=== PATIENT | female | born 1985 | race Caucasian/White ===

== ENCOUNTER 2022-12-22 11:28 | Emergency (ER) | payer SELFPAY ==
[~2022-12-22] VITALS: Ht 160 cm; Wt 51.3 kg
[2022-12-22 11:28] VITALS: BP 135/75
--- NOTE | 2022-12-22 11:28 | NUR ---
FOR ARRIVAL PATIENT ARRIVED TO ED5 AMBULATORY, C/O BLADDER SPASMS,BURNING AND URGENCY WITH URINATION FOR THE PAST ONE MONTH, DID TAKEN IBUPROFEN FLUE BLOWER, CAME TO THE ED EVAL, VITAL SIGNS TAKEN AND DOCTOR NOTIFIED OF PATIENT'S ARRIVAL.
[2022-12-22 12:09] LABS: BILIRUBIN,URINE NEGATIVE (NEGATIVE); UROBILINOGEN,URINE 0.2 E.U./dL (0.2)
[2022-12-22 12:17] VITALS: BP 108/68
--- NOTE | 2022-12-22 12:53 | ER.PDOC ---
General Chief Complaint: Female Urogenital Problems Stated Complaint: FEMALE Time seen by MD: 12:51 Source: patient Exam Limitations: no limitations History of Present Illness Initial Comments Pain and burning with urination for 1 Month. No fever or chills. Severity/Quality: moderate Associated Symptoms: dysuria Allergies: Coded Allergies: No Known Allergies (Unverified , 12/22/22) Past Medical History Medical History: no pertinent history Surgical History: no surgical history Family History Significant Family History: no pertinent family hx Social History Smoking: non-smoker Alcohol Use: none Drug Use: none Review of Systems Constitutional: no symptoms reported EENTM: no symptoms reported Respiratory: no symptoms reported Cardiovascular: no symptoms reported Gastrointestinal: no symptoms reported Genitourinary: see HPI All Other Systems: Reviewed and Negative Physical Exam General Appearance: No Apparent Distress, WD/WN Neck: nml inspection, non-tender Cardiovascular/Respiratory: Regular Rate, Rhythm, No M/R/G, Normal Peripheral Pulses, No JVD, Normal Breath Sounds, No Respiratory Distress Abdomen: Normal Bowel Sounds, Non Tender, Soft, No Organomegaly, No Pulsatile Mass Back: nml inspection Extremities: Normal Range of Motion, Non-Tender, Normal Inspection, No Pedal Edema, No Calf Tenderness, Normal Capillary Refill Neurologic/Psychiatric: zigzag appliquer II-XII NML as Tested, No Motor/Sensory Deficits, Alert, Normal Mood/Affect, Oriented x 3 Skin: Normal Color, Warm/Dry Lymphatic: No Adenopathy Results/Orders Results/Orders Orders - HUE BRIAN MD Urinalysis (12/22/22 11:50) Hcg Urine (12/22/22 11:50) Urine Culture (12/22/22 UNK) Vital Signs Date Time Temp Pulse Resp B/P (MAP) Pulse Ox O2 Delivery O2 Flow Rate FiO2 12/22/22 12:17 98.5 79 18 108/68 (81) 100 Room Air* 0 21 12/22/22 11:28 98.5 93 18 100 12/22/22 11:28 98.5 93 18 135/75 (95) 100 Room Air* 0 21 12/22/22 11:28 98.5 93 18 Laboratory Tests Test 12/22/22 00:00 Urine Collection Type RANDOM Urine Color YELLOW Urine Appearance CLOUDY Urine Bilirubin NEGATIVE (NEGATIVE) Urine Ketones NEGATIVE (NEGATIVE) Urine Specific [place] 1.015 (1.005-1.030) Urine pH 5.5 (4.5-8.0) Urine Protein 1+ (NEGATIVE) H Urine Urobilinogen 0.2 E.U./dL (0.2) Urine Nitrate NEGATIVE (NEGATIVE) Urine Leukocyte Esterase 3+ (NEGATIVE) H Urine Glucose (Auto)(UA) NEGATIVE (NEGATIVE) Urine Blood 2+ (NEGATIVE) H Urine RBC 2-5 RBC/HPF (NONE SEEN) Urine WBC TooNumerousToCount WBC/HPF (0-2) Urine Squamous Epithelial Cells FEW (<=FEW) Urine Renal Epithelial Cells FEW (NONE SEEN) A Urine Bacteria FEW (NONE SEEN) H Urine Fine Granular Casts FEW (NONE SEEN) A Urine HCG, Qualitative NEGATIVE (NEGATIVE) Progress Progress Urinalysis: WBCs too numerous to count and leukocyte esterase 3+. HCG neg I reviewed labs with the patient. ER DEPART Departure Time of Disposition: 12:53 Disposition: 01 HOME / SELF CARE / HOMELESS Impression: Primary Impression: UTI (urinary tract infection) Condition: Stable Referrals: PCP,UNKNOWN (PCP) PRIMARY CARE PROVIDER Additional Instructions: Ciprofloxacin Follow-up with your PCP in 1 week Return to ED if worsening or concerns Duration or Time Spent with Pa: 10 min Problem Qualifiers Primary Impression: UTI (urinary tract infection) Urinary tract infection type: site unspecified Hematuria presence: with hematuria Qualified Codes: N39.0 - Urinary tract infection, site not specified; R31.9 - Hematuria, unspecified HUE BRIAN MD Dec 22, 2022 12:53
[2022-12-22 13:03] VITALS: BP 108/68
== END 2022-12-22 13:02 | disposition home or self-care (01) ==
LOC: ER 11:28
DX: N39.0 Urinary tract infection, site not specified (principal)
CPT/HCPCS: 81001; 81025; 87077; 87086; 87186; 99283

== ENCOUNTER 2023-03-22 15:10 | Emergency (ER) | payer BC ==
[~2023-03-22] VITALS: Ht 160 cm; Wt 48.5 kg
--- NOTE | 2023-03-22 15:25 | NUR ---
ARRIVAL PT AMBULATES TO ED6 WITH C/O URINARY FREQUENCY, URINARY URGENCY, AND BURNING X 1 MONTH. PT STATES SHE WAS RX MACROBID 2 WEEKS AGO AND WAS RX X 5 DAYS WITH NO RELIEF. PT STATES HER PAIN IS 10/10, DESCRIBED SHARP AND BURNING. PT STATES SYMPTOMS HAVE WORSENED OVER THE MONTH. PT AFEBILRE OF 98.9. VITALS OBTAINED. NOTIFIED OF PTS ARRIVAL.
[2023-03-22 15:39] VITALS: BP 113/79
[2023-03-22 15:46] LABS: BILIRUBIN,URINE NEGATIVE (NEGATIVE)
[2023-03-22] MEDS ORDERED: ROCEPHIN ONE (16:13)
[2023-03-22] MEDS ORDERED: XYLOCAINE ONE (16:14)
[2023-03-22] MEDS ORDERED: LIDOCAINE 1% VIAL ONE (16:15)
--- NOTE | 2023-03-22 16:19 | ER.PDOC ---
General Chief Complaint: Female Urogenital Problems Stated Complaint: FEMALE Time seen by MD: 15:30 Source: patient Exam Limitations: no limitations History of Present Illness Initial Comments Patient is a 37-year-old female with a past medical history of bipolar anxiety and depression who comes in with urinary tract infection symptoms over the past week. Patient states over the past week she has had burning with urination. Patient states that she had a urinary tract infection she consulted with like an online doctor who gave her Macrobid and states that she never really got any better she states that she has urgency frequency and burning and she denies any other symptoms or concerns at this time. Allergies: Coded Allergies: No Known Allergies (Unverified , 12/22/22) Past Medical History Medical History: other Surgical History: EGD Family History Significant Family History: no pertinent family hx Social History Smoking: greater than 1 pack/day Alcohol Use: rarely Drug Use: none Reviewed Nursing Reviewed: Vital Signs, Abn. Noted, Nursing Assessment Review of Systems Constitutional: no symptoms reported EENTM: no symptoms reported Respiratory: no symptoms reported Cardiovascular: no symptoms reported Gastrointestinal: no symptoms reported Genitourinary: burning, dysuria Musculoskeletal: no symptoms reported Skin: no symptoms reported Psychiatric/Neurological: no symptoms reported Endocrine: no symptoms reported Hematologic/Lymphatic: no symptoms reported Physical Exam General Appearance: Anxious EENT: eyes nml inspection, nml ENT inspection, pharynx nml Neck: nml inspection, non-tender Cardiovascular/Respiratory: Regular Rate, Rhythm, No M/R/G, Normal Peripheral Pulses, No JVD, Normal Breath Sounds, No Respiratory Distress Abdomen: Normal Bowel Sounds, Non Tender, Soft Back: nml inspection Extremities: Non-Tender Neurologic/Psychiatric: No Motor/Sensory Deficits Skin: Warm/Dry Lymphatic: No Adenopathy Results/Orders Results/Orders Orders - REJI MARR MD Urinalysis (03/22/23 15:38) Hcg Urine (03/22/23 15:38) Urine Culture (03/22/23 15:11) Ceftriaxone Sodium (Rocephin) (03/22/23 16:09) Lidocaine Hcl (Xylocaine) (03/22/23 16:14) Lidocaine Hcl (Lidocaine 1% Vial) (03/22/23 16:15) Vital Signs Date Time Temp Pulse Resp B/P (MAP) Pulse Ox O2 Delivery O2 Flow Rate FiO2 03/22/23 15:39 98.9 88 20 113/79 (90) 99 Room Air* 0 21 03/22/23 15:39 98.9 88 20 99 03/22/23 15:39 98.9 88 20 Laboratory Tests Test 03/22/23 15:11 Urine Collection Type UNKNOWN Urine Color STRAW Urine Appearance CLOUDY Urine Bilirubin NEGATIVE (NEGATIVE) Urine Ketones TRACE (NEGATIVE) H Urine Specific [place] 1.025 (1.005-1.030) Urine pH 6.5 (4.5-8.0) Urine Protein 3+ (NEGATIVE) H Urine Urobilinogen 1.0 E.U./dL (0.2) Urine Nitrate NEGATIVE (NEGATIVE) Urine Leukocyte Esterase 3+ (NEGATIVE) H Urine Glucose (Auto)(UA) NEGATIVE (NEGATIVE) Urine Blood 2+ (NEGATIVE) H Urine RBC 5-10 RBC/HPF (NONE SEEN) H Urine WBC TooNumerousToCount WBC/HPF (0-2) Urine Squamous Epithelial Cells FEW (<=FEW) Urine Bacteria MANY (NONE SEEN) H Urine HCG, Qualitative NEGATIVE (NEGATIVE) Progress Progress Patient here with UTI symptoms we will go ahead and send off urine continue to monitor. [id number]'s urine is infected she is positive leukocyte Estrace with many bacteria and only few squamous cells do believe this is a urinary tract infection since is already been on Macrobid this does make this a little bit complicated so we will go ahead and give cefpodoxime we will give ceftriaxone here as an injection and also discharged with Pyridium as well. She voiced understanding when to follow-up and when to return to the ER. ER DEPART Departure Time of Disposition: 16:18 Disposition: 01 HOME / SELF CARE / HOMELESS Impression: Primary Impression: UTI (urinary tract infection) Condition: Stable Patient Instructions: Urinary Tract Infection Referrals: PCP,UNKNOWN (PCP) PRIMARY CARE PROVIDER Additional Instructions: Follow-up with primary care provider within the next week. If you have any new persistent or worsening symptoms or concerns seek medical attention. Please take all medications as prescribed. Duration or Time Spent with Pa: 30 Problem Qualifiers Primary Impression: UTI (urinary tract infection) Urinary tract infection type: site unspecified Hematuria presence: with hematuria Qualified Codes: N39.0 - Urinary tract infection, site not specified; R31.9 - Hematuria, unspecified REJI MARR MD Mar 22, 2023 16:19
[2023-03-22] MEDS: ROCEPHIN IM STA (16:24)
== END 2023-03-22 16:21 | disposition home or self-care (01) ==
LOC: ER 15:10
DX: N39.0 Urinary tract infection, site not specified (principal); F17.210 Nicotine dependence, cigarettes, uncomplicated; Z87.440 Personal history of urinary (tract) infections
CPT/HCPCS: 99284; 96372; 87086; 81001; 81025; 87077; 87186; J2001 ×2; J0696